=== PATIENT | female | born 1930 | race Caucasian/White ===

== ENCOUNTER 2017-08-25 10:06 | Inpatient (IN) | payer OTHER ==
[~2017-08-25] VITALS: Ht 147.3 cm; Wt 58.2 kg
[~2017-08-25 10:06] MED LIST: ASPIR 8181 M1 PO; BENAZEPRIL HCL40 MG PO; BLOOD PRESSURE MEDS; CHOLESTEROL; COLACE100 MG PO; CRANBERRY500 M2 PO; DUONEB 2.5-0.5 M3 ML AEROSOL; ERGOCALCIF50000 UNIT PO; FOSAMAX70 MG PO; LOVASTATIN20 MG PO; TRAMADOL HCL50 MG PO; VENTOLIN HFA18 GM IH
[2017-08-25 11:11] LABS: EOSINOPHIL (%) 1.7 % (0-5); EOSINOPHIL COUNT 0.2 K/uL (0-0.3); HEMATOCRIT 39.7 % (36.0-46.0); IMMATURE GRANULOCYTE (%) 0.6 % (0.0-0.7); IMMATURE GRANULOCYTE COUNT 0.1 K/uL; INSTRUMENT ABS NEUTROPHIL CT 6.1 K/uL; LYMPHOCYTE COUNT 1.6 K/uL (1.0-2.8); MCH 28.3 PG (29.0-34.0); MCHC 32.2 G/DL (30.0-36.0); MCV 87.8 FL (83-99); MEAN PLAT.VOLUME 9.5 uM^3 (9.5-12.4); MONOCYTE (%) 9.6 % (3-12); MONOCYTE COUNT 0.9 K/uL (0-0.8); NEUTROPHIL (%) 69.2 % (45-76); NEUTROPHIL COUNT 6.1 K/uL (1.8-6.4); PLATELET COUNT 432 K/uL (156-360); RBC DIS.WIDTH-CV 13.8 % (11.8-14.6); RBC DIS.WIDTH-SD 44.6 % (39-53); RED BLOOD COUNT 4.52 M/uL (3.80-5.20); WHITE BLOOD COUNT 8.8 K/uL (4.1-10.2)
[2017-08-25 11:19] LABS: CHLORIDE 101 mEq/L (99-109); POTASSIUM 4.8 mEq/L (3.7-5.4); SODIUM 137 mEq/L (136-147)
[2017-08-25 11:20] LABS: MAGNESIUM 2.1 mg/dL (1.3-2.7)
[2017-08-25 11:21] LABS: GLUCOSE 106 mg/dL (70-99)
[2017-08-25 11:22] LABS: ANION GAP 12 MEQ/L (2-14)
[2017-08-25 11:25] LABS: GFR ESTIMATE (CALCULATED) > 59 mL/min/
[2017-08-25 11:26] LABS: UREA NITROGEN (BUN) 12 mg/dL (9-23)
[2017-08-25] MEDS ORDERED: ADVIL,NUPRIN,M200 MG PO (15:00)
[2017-08-25] MEDS ORDERED: IPRATROPIUM BRO30 ML BOTH NARES (15:04)
[2017-08-25] MEDS ORDERED: CYANOCOBALAM1000 MCG PO (15:05)
[2017-08-25 19:14] LABS: ADD MIUA? NO; BILIRUBIN NEGATIVE; BLOOD NEGATIVE; COLOR YELLOW ((YELLOW)); GLUCOSE (STRIP) NEGATIVE; KETONES NEGATIVE; LEUKOCYTES NEGATIVE; NITRITE NEGATIVE; PROTEIN (STRIP) NEGATIVE; SPECIFIC GRAVITY 1.012 (1.000-1.030); UCUL ADDED? NO; UROBILINOGEN 0.2 MG/DL (0.2-1.0)
[2017-08-25 19:44] VITALS: BP 149/65
[2017-08-25 23:18] VITALS: BP 147/67
[2017-08-26 04:52] VITALS: BP 187/80
[2017-08-26 05:10] VITALS: BP 145/72
[2017-08-26 06:32] LABS: HEMATOCRIT 34.7 % (36.0-46.0)
[2017-08-26 06:54] LABS: ANION GAP 8 MEQ/L (2-14); CHLORIDE 105 MEQ/L (99-109); POTASSIUM 4.8 MEQ/L (3.7-5.4); SAMPLE HEMOLYSIS CHECK 0; SAMPLE ICTERIC CHECK 0; SAMPLE LIPEMIA CHECK 0; SODIUM 138 MEQ/L (136-147)
[2017-08-26 06:59] LABS: GFR ESTIMATE (CALCULATED) > 59 mL/min/; GLUCOSE 97 mg/dL (70-99); UREA NITROGEN (BUN) 14 mg/dL (9-23)
[2017-08-26 07:48] VITALS: BP 158/73
[2017-08-26 15:19] VITALS: BP 132/61
[2017-08-26 23:51] VITALS: BP 158/68
[2017-08-27 07:55] VITALS: BP 173/79
[2017-08-27] MEDS ORDERED: POLYETHYLENE GL17 GM PO (12:48)
[2017-08-27] MEDS ORDERED: LOVENOX30 MG/0.3 SC (12:49)
[2017-08-27] MEDS ORDERED: DUONEB 2.5-0.5 M3 ML AEROSOL (12:49)
[2017-08-27] MEDS ORDERED: HYDROCODON-ACE1 EAC9 PO (12:49)
[2017-08-27] MEDS ORDERED: NORCO 5/3251 TABLET PO (17:09)
== END 2017-08-27 13:59 | DRG 536 ==
LOC: EME 10:06 → EDOF 15:39 → ENRESERV 15:41 → 3EAST 18:06
PROVIDERS: Emergency Medicine; Hospitalist
DX: S72.141A Displaced intertrochanteric fracture of right femur, initial encounter for closed fracture (principal); J44.9 Chronic obstructive pulmonary disease, unspecified; W07.XXXA Fall from chair, initial encounter; Y92.009 Unspecified place in unspecified non-institutional (private) residence as the place of occurrence of the external cause; E78.5 Hyperlipidemia, unspecified; I10 Essential (primary) hypertension; K59.00 Constipation, unspecified; I44.7 Left bundle-branch block, unspecified; Z87.891 Personal history of nicotine dependence
CPT/HCPCS: 72192; 73502; 80048; 81003; 83735; 85014; 85018; 85025; 93005; 94799; 99202; 99281; 99285; J1650; J2270; J2405; J7030

== ENCOUNTER 2017-08-27 12:21 | Inpatient (IN) | payer OTHER ==
[~2017-08-27] VITALS: Ht 147.3 cm; Wt 61.0 kg
[~2017-08-27 12:21] MED LIST changes: +ADVIL,NUPRIN,M200 MG PO; +CYANOCOBALAM1000 MCG PO; +IPRATROPIUM BRO30 ML BOTH NARES
[2017-08-27] MEDS ORDERED: POLYETHYLENE GL17 GM PO (12:48)
[2017-08-27] MEDS ORDERED: HYDROCODON-ACE1 EAC9 PO (12:49)
[2017-08-27] MEDS ORDERED: DUONEB 2.5-0.5 M3 ML AEROSOL (12:49)
[2017-08-27] MEDS ORDERED: LOVENOX30 MG/0.3 SC (12:49)
[2017-08-27 14:16] VITALS: BP 139/63
[2017-08-27] MEDS ORDERED: NORCO 5/3251 TABLET PO (17:09)
[2017-08-28 00:19] VITALS: BP 156/70
[2017-08-28 05:23] VITALS: BP 140/63
[2017-08-28 06:52] LABS: MCH 28.7 PG (29.0-34.0); MCHC 32.4 G/DL (30.0-36.0); MCV 88.5 FL (83-99); MEAN PLAT.VOLUME 9.7 uM^3 (9.5-12.4); PLATELET COUNT 325 K/uL (156-360); RBC DIS.WIDTH-SD 45.3 % (39-53); RED BLOOD COUNT 3.73 M/uL (3.80-5.20); WHITE BLOOD COUNT 9.2 K/uL (4.1-10.2)
[2017-08-28 07:20] LABS: ALKALINE PHOSPHATASE 50 IU/L (3-129); ANION GAP 5 MEQ/L (2-14); CHLORIDE 102 MEQ/L (99-109); GFR ESTIMATE (CALCULATED) > 59 mL/min/; GLUCOSE 100 mg/dL (70-99); SAMPLE HEMOLYSIS CHECK 0; SAMPLE ICTERIC CHECK 0; SAMPLE LIPEMIA CHECK 0; SODIUM 136 MEQ/L (136-147); TOTAL BILIRUBIN 0.3 MG/DL (0.0-1.0); UREA NITROGEN (BUN) 9 mg/dL (9-23)
[2017-08-28 15:32] VITALS: BP 135/62
[2017-08-29 05:26] VITALS: BP 153/70
[2017-08-29 15:12] VITALS: BP 144/65
[2017-08-30 05:28] VITALS: BP 161/70
[2017-08-30 15:28] VITALS: BP 158/71
[2017-08-31 04:41] VITALS: BP 163/73
[2017-08-31 15:13] VITALS: BP 144/65
[2017-09-01 04:23] VITALS: BP 152/69
[2017-09-01 10:47] VITALS: BP 144/66
[2017-09-01 15:57] VITALS: BP 152/68
[2017-09-02 04:35] VITALS: BP 168/73
[2017-09-02 15:02] VITALS: BP 174/76
[2017-09-03 00:19] VITALS: BP 159/70
[2017-09-03 05:32] VITALS: BP 146/67
[2017-09-03 15:36] VITALS: BP 167/79
[2017-09-04 04:59] VITALS: BP 145/78; BP 166/71
[2017-09-04] MEDS ORDERED: LOVENOX30 MG/0.3 SC (11:55)
[2017-09-04 16:00] VITALS: BP 147/65; BP 157/67
[2017-09-05 04:59] VITALS: BP 156/76
[2017-09-05] MEDS ORDERED: THERAGRAN1 TABLET PO (13:29)
[2017-09-05] MEDS ORDERED: VITAMIN D2000 UNI1 PO (13:29)
[2017-09-05] MEDS ORDERED: Tums,OsCal PO (13:29)
[2017-09-05] MEDS ORDERED: DOCUSATE SODIU100 MG PO (13:29)
[2017-09-05] MEDS ORDERED: TYLENOL REGULA325 MG PO (13:29)
== END 2017-09-05 14:25 | disposition home health service (06) | DRG 560 ==
LOC: 3WEST 12:21
PROVIDERS: Physical Medicine & Rehabilitation Pain Medicine
PROC: F07M0ZZ Range of Motion and Joint Mobility Treatment of Musculoskeletal System - Whole Body (ICD-10-PCS; principal; 2017-08-27)
DX: S72.141D Displaced intertrochanteric fracture of right femur, subsequent encounter for closed fracture with routine healing (principal); W19.XXXD Unspecified fall, subsequent encounter; R26.2 Difficulty in walking, not elsewhere classified; M25.551 Pain in right hip; I10 Essential (primary) hypertension; D64.9 Anemia, unspecified; E78.5 Hyperlipidemia, unspecified; J44.9 Chronic obstructive pulmonary disease, unspecified; M85.80 Other specified disorders of bone density and structure, unspecified site; K59.00 Constipation, unspecified; Z96.641 Presence of right artificial hip joint; E83.51 Hypocalcemia; D75.89 Other specified diseases of blood and blood-forming organs; M19.032 Primary osteoarthritis, left wrist; Z96.651 Presence of right artificial knee joint; E87.6 Hypokalemia; S52.612K Displaced fracture of left ulna styloid process, subsequent encounter for closed fracture with nonunion; Z87.891 Personal history of nicotine dependence
CPT/HCPCS: 73110; 73130; 73223; 80053; 85027; 97110 GO; 97530 GP; J1650